=== PATIENT | female | born 1965 | race Caucasian/White ===

== ENCOUNTER 2023-02-07 10:29 | Emergency (ER) | payer MEDICAID ==
[~2023-02-07] VITALS: Ht 170.2 cm; Wt 73.0 kg
[2023-02-07 10:30] VITALS: BP_SYST 133; PULSE 60; RESP 17; TEMP 98.2; O2SAT 95
[2023-02-07] MEDS ORDERED: MECLIZINE HCL 25 MG TABLET (ANITVERT) PO ONE (10:45)
[2023-02-07] MEDS ORDERED: METOCLOPRAMIDE HCL 10 MG/2 ML VIAL IVP ONE (10:45)
[2023-02-07 11:43] LABS: BASOPHILS % (AUTO) 0.7 % (0.0-2.0); EOSINOPHILS # (AUTO) 0.1 K/uL (0.0-0.4); EOSINOPHILS % (AUTO) 1.4 % (0.0-4.0); HEMATOCRIT 43.8 % (36-48); HEMOGLOBIN 14.3 g/dL (12.0-16.0); LYMPHOCYTES # (AUTO) 2.8 K/uL (1.0-5.5); MEAN CORPUSCULAR HEMOGLOBIN 31 pg (27-31); MEAN CORPUSCULAR HGB CONC 33 % (32-36); MEAN CORPUSCULAR VOLUME 96 fL (79.0-98.0); MONOCYTES # (AUTO) 0.5 K/uL (0.0-1.0); MONOCYTES % (AUTO) 8.6 % (1.7-9.3); NEUTROPHILS # (AUTO) 2.7 K/uL (1.8-7.7); NEUTROPHILS % (AUTO) 43.3 % (40.0-70.0); PLATELET COUNT (AUTO) 203 K/uL (130-430); RED BLOOD CELL COUNT(AUTO) 4.58 MIL/uL (4.2-6.2); RED CELL DISTRIBUTION WIDTH 13.4 % (9.0-15.0); WHITE BLOOD COUNT (AUTO) 6.1 K/uL (4.8-10.8)
[2023-02-07 11:53] LABS: ANION GAP 8 (5-15); CALCIUM 8.9 mg/dL (8.4-11.0); CARBON DIOXIDE 29 mmol/L (23-29); CHLORIDE 105 mmol/L (98-107); CREATININE 0.75 mg/dL (0.55-1.30); GFR AFRICAN AMERICAN 102 mL/min (>90); GLUCOSE 101 mg/dL (74-106); POTASSIUM 3.9 mmol/L (3.5-5.1); SODIUM SERUM 142 mmol/L (136-145); UREA NITROGEN, BLOOD 21 mg/dL (8-21)
[2023-02-07 11:56] LABS: GFR NON AFRICAN-AMERICAN 84 mL/min (>90)
[2023-02-07 12:01] LABS: ALANINE AMINOTRANSFERASE 70 U/L (12-78); ALBUMIN 3.9 g/dL (3.4-4.8); ASPARTATE AMINOTRANSFERASE 42 U/L (10-37); CREATINE KINASE, TOTAL 70 U/L (26-192); TOTAL BILIRUBIN 0.9 mg/dL (0.0-1.0); TOTAL PROTEIN, SERUM 7.8 g/dL (6.4-8.3)
[2023-02-07 12:09] LABS: PROTHROMBIN TIME 10.4 SECS (9.5-12.5)
[2023-02-07 12:41] VITALS: BP_SYST 133; PULSE 60; RESP 17; TEMP 98.2; O2SAT 95
== END 2023-02-07 12:37 | disposition home or self-care (01) ==
LOC: SED 10:29
DX: R42 Dizziness and giddiness (principal); R51.9 Headache, unspecified; R07.2 Precordial pain; Z79.899 Other long term (current) drug therapy
CPT/HCPCS: 99285; 96374; 70450; 71045; 80053; 82550; 85025; 85610; 85730; 84484; 36415; 76376; J8597; J2765